=== PATIENT | male | born 1980 | race Caucasian/White ===

== ENCOUNTER 2016-09-18 08:19 | Emergency (ER) | payer OTHER ==
--- NOTE | 2016-09-18 09:01 | RAD ---
THREE VIEW LEFT FOOT: Indication: Injury two days prior with persistent pain. FINDINGS: Lisfranc joint is maintained. There is no fracture or dislocation identified. Soft tissue prominen ce of the distal aspect of the foot is present. IMPRESSION: Soft tissue prominence of the distal foot without underlying fracture identified. POS: [facility]
== END 2016-09-18 09:01 | disposition home or self-care (01) ==
LOC: NAV ERS 08:19
DX: M79.672 Pain in left foot (principal); X58.XXXA Exposure to other specified factors, initial encounter

== ENCOUNTER 2016-10-08 11:47 | Outpatient (CLI) | payer OTHER ==
[~2016-10-08 11:47] MED LIST: Iopamidol 370 76% 100 ML VIAL ONE
--- NOTE | 2016-10-08 15:13 | CT ---
CHEST CT WITH CONTRAST ABDOMEN CT WITH CONTRAST: Date: 10/08/16 HISTORY: Precordial pain. COMPARISON: None. TECHNIQUE: Postcontrast chest and abdomen CT performed in the axial plane. Coronal reformatted images are submi tted for interpretation. FINDINGS: CHEST CT: No mediastinal mass, lymphadenopathy, or hematoma. Heart size is normal. There is no pericardial eff usion. Thoracic aorta and abdominal aorta have an overall normal caliber. No periaortic fat strandin g. Central pulmonary arteries are grossly unremarkable. Trachea and central bronchi are patent. Dependent atelectatic changes and scarring in the lingula an d left lower lobe. No masses. No consolidation. No pleural effusion or pneumothorax. ABDOMEN CT: Intra and extrahepatic portal vein is patent. Symmetric attenuation of psoas muscles. Gallbladder i s unremarkable. Liver, spleen, pancreas, and adrenal glands have appropriate enhancement. Symmetric enhancement of the kidneys. Bilaterally, no obstructive uropathy. There are nonspecific periaortic and aortocaval lymph nodes. There are enlarged mesenteric lymph nod es. Public Health Epidemiologist enlarged mesenteric lymph node measures 1.4 x 0.9 cm. There is no mesenteric free air or free fluid. Gastric mucosa, duodenum, and small bowel loops have an overall normal caliber. Ileocecal junction i s normal. Normal caliber appendix. Visualized colon is unremarkable. There are no osteoblastic or osteolytic lesions. IMPRESSION: 1. No acute abnormality in the chest or abdomen. 2. Enlarged left upper quadrant lymph nodes. Correlate for mesenteric lymphadenitis. POS: [facility]
== END 2016-10-08 11:48 | disposition home or self-care (01) ==
LOC: NAV CT 11:47
PROVIDERS: ATTEND Internal Medicine
DX: R07.2 Precordial pain (principal); R59.0 Localized enlarged lymph nodes
CPT/HCPCS: 71260; 74160

== ENCOUNTER 2017-02-12 14:46 | Outpatient (CLI) | payer OTHER ==
[2017-02-12 15:32] LABS: Anion Gap 14 mmol/L (10-20); BUN (Urea Nitrogen) 15 mg/dL (8.9-20.6); Calc. Creatinine Clearance 0 mL/min (70-130); Calcium 9.3 mg/dL (7.8-10.44); Carbon Dioxide 22 mmol/L (22-29); Chloride 105 mmol/L (98-107); Estimated GFR-MDRD Greater than 90; Glucose 80 mg/dL (70-105); Magnesium 2.5 mg/dL (1.6-2.6); Potassium 3.8 mmol/L (3.5-5.1); Sodium 137 mmol/L (136-145)
== END 2017-02-12 14:47 | disposition home or self-care (01) ==
LOC: NAVSJIPCSP 14:46
PROVIDERS: ATTEND Internal Medicine
DX: G25.81 Restless legs syndrome (principal)
CPT/HCPCS: 36415; 80048; 83735

== ENCOUNTER 2017-03-20 09:34 | Outpatient (CLI) | payer OTHER ==
[2017-03-20 17:49] LABS: Iron 80 ug/dL (65-175); Iron Binding Capacity, Total 313 mcg/dL (261-462); Transferrin, Serum 250 mg/dL (174-364)
== END 2017-03-20 09:35 | disposition home or self-care (01) ==
LOC: NAVSJIPCSP 09:34
PROVIDERS: ATTEND Internal Medicine
DX: E83.110 Hereditary hemochromatosis (principal)
CPT/HCPCS: 36415; 82728; 83540; 83550; 84466

== ENCOUNTER 2017-04-10 12:47 | Emergency (ER) | payer OTHER ==
[2017-04-10] MEDS ORDERED: Mag-Al Plus 1200 MG/1200 MG/120 MG/30 ML UDCUP ONE (12:58)
[2017-04-10] MEDS ORDERED: Lidocaine Viscous Sol 2% 15 ml UD Cup ONE (12:59)
[2017-04-10] MEDS ORDERED: Fentanyl 100 MCG/2 ML VIAL ONE ×2 (13:14→14:25)
[2017-04-10 13:19] LABS: #Basophils 0.1 thou/uL (0.0-0.2); #Eosinphils 0.3 thou/uL (0.0-0.7); #Lymphocytes 2.5 thou/uL (1.20-3.40); #Monocytes 0.5 thou/uL (0.11-0.59); #Neutrophils 5.4 thou/uL (1.40-6.50); %Basophils 1.2 % (0.0-1.0); %Eosinophils 3.8 % (0.0-10.0); %Lymphocytes 28.1 % (21.0-51.0); %Monocytes 5.4 % (0.0-10.0); %Neutrophils 61.5 % (42.0-75.0); Hemoglobin 15.4 g/dL (14.0-18.0); Mean Corpuscular HGB CONC 33.3 g/dL (32.0-36.0); Mean Corpuscular Hemoglobin 27.6 pg (27.0-31.0); Mean Corpuscular Volume 82.9 fl (80.0-94.0); Mean Platelet Volume 7.9 fL (7.4-10.4); Platelet Count 299 thou/uL (130-400); RBC Distribution Width 11.8 % (11.5-14.5); Red Blood Cell (RBC) Count 5.57 mill/uL (4.70-6.10); White Blood Cell (WBC) Count 8.7 thou/uL (4.8-10.8)
[2017-04-10 13:29] LABS: ALT (SGPT) 35 U/L (8-55); AST (SGOT) 18 U/L (5-34); Albumin 4.2 g/dL (3.5-5.0); Alkaline Phosphatase 61 U/L (40-150); Anion Gap 12 mmol/L (10-20); BUN (Urea Nitrogen) 17 mg/dL (8.9-20.6); Bilirubin, Total 0.9 mg/dL (0.2-1.2); CK (CPK) 92 U/L (30-200); Calc. Creatinine Clearance 0 mL/min (70-130); Calcium 9.3 mg/dL (7.8-10.44); Carbon Dioxide 24 mmol/L (22-29); Chloride 104 mmol/L (98-107); Estimated GFR-MDRD Greater than 90; Globulin 3.3 g/dL (2.4-3.5); Glucose 118 mg/dL (70-105); Lipase 53 U/L (8-78); Potassium 3.6 mmol/L (3.5-5.1); Protein, Total 7.5 g/dL (6.0-8.3); Sodium 136 mmol/L (136-145)
[2017-04-10 13:30] LABS: CKMB 1.1 ng/mL (0-6.6); Troponin I Less than 0.010 ng/mL (< 0.028)
--- NOTE | 2017-04-10 13:39 | RAD ---
PORTABLE CHEST ONE VIEW: 04/10/2017 1:05 p.m. HISTORY: Chest pain. COMPARISON: 10/03/2016 FINDINGS: The heart size is normal. The lungs are well expanded without focal areas of consolidation, pneumot horax, or pleural effusions. IMPRESSION: No radiographic evidence of acute cardiopulmonary process. POS: [facility]
[2017-04-10] MEDS ORDERED: Ondansetron HCl/PF 4 MG/2 ML Vial ONE (14:26)
--- NOTE | 2017-04-10 14:52 | ULT ---
GALLBLADDER ULTRASOUND: HISTORY: Right upper quadrant pain, onset two hours ago. TECHNIQUE: Multiple longitudinal and transverse images of the right upper quadrant of the abdomen were obtained using a Multi-Hertz curvilinear transducer. FINDINGS: Real-time and color-flow images demonstrate fibrofatty changes seen in the liver. No definite evide nce of hepatic parenchymal masses or lesions seen. No evidence of intrahepatic biliary dilatation s een. The gallbladder contains a single shadowing focus, measuring approximately 9 mm, compatible wi th a single gallstone. No evidence of gallbladder wall thickening is seen. No evidence of perichol ecystic fluid is seen. The common bile is of normal size, measuring 4.6 mm. The visualized portions of the pancreas are unremarkable. The right kidney is unremarkable. No evidence of right renal masses or lesions seen. IMPRESSION: Cholelithiasis without evidence of obvious cholecystitis. POS: [facility]
[2017-04-10] MEDS ORDERED: Promethazine HCl 25 MG/ML VIAL ONE (15:02)
[2017-04-10] MEDS ORDERED: Ketorolac Tromethamine 30 MG/ML VIAL ONE (15:02)
[2017-04-10] MEDS ORDERED: Sodium Chloride 0.9% 0 ML ONE (15:03)
[2017-04-10] MEDS ORDERED: Sodium Chloride 0.9% 100 ML ONE (15:04)
== END 2017-04-10 15:10 | disposition short-term general hospital (02) ==
LOC: NAV ERS 12:47
DX: K80.80 Other cholelithiasis without obstruction (principal); F98.8 Other specified behavioral and emotional disorders with onset usually occurring in childhood and adolescence
CPT/HCPCS: 36415; 71010; 76705; 80053; 82553; 83690; 84484; 85025; 85379; 93005; 96361; 96374; 96375; 96376; J1885; J2405; J2550; J3010; J7050

== ENCOUNTER 2018-02-04 17:29 | Outpatient (CLI) | payer OTHER ==
--- NOTE | 2018-02-04 18:03 | RAD ---
SINGLE VIEW OF THE ABDOMEN: 02/04/18 COMPARISON: 08/09/08. HISTORY: History of ureteral calculi with left lower abdominal pain. FINDINGS: Single view of the abdomen shows a nonspecific, nonobstructed bowel gas pattern. There is calcificati on in the left pelvis which likely represents a phlebolith as it is unchanged compared to the prior e xam. No obvious calcifications are seen projecting over either renal shadow. IMPRESSION: No urinary collecting system calculi identified. POS: [facility]
== END 2018-02-04 17:30 | disposition home or self-care (01) ==
LOC: NAV RAD 17:29
PROVIDERS: ATTEND Urology
DX: N20.2 Calculus of kidney with calculus of ureter (principal)
CPT/HCPCS: 74018

== ENCOUNTER 2018-02-09 12:44 | Emergency (ER) | payer OTHER ==
[2018-02-09] MEDS ORDERED: Ketorolac Tromethamine 60 MG/2 ML VIAL ONE (13:01)
[2018-02-09] MEDS ORDERED: Ondansetron ODT 4 MG TAB ONE (13:01)
[2018-02-09 13:28] LABS: Bilirubin Negative (Negative); Blood, Urine Negative (Negative); Clarity Clear (Clear); Glucose, Urine (Dipstick) Negative (Negative); Leukocyte Negative (Negative); Nitrite Negative (Negative); Protein, Urine (Dipstick) Negative (Neg-Trace); Urobilinogen 0.2 mg/dL (0.2-1.0)
--- NOTE | 2018-02-09 13:46 | CT ---
NONCONTRAST CT ABDOMEN AND PELVIS: DATE: 02/09/18. HISTORY: Left flank pain. History of renal calculi. COMPARISON: 11/08/13 as well as postcontrast CT abdomen on 10/08/16. FINDINGS: There is atelectasis present at the left lung base. The right lung base is clear. There is mildly d iminished attenuation of the liver relative to the spleen suggesting mild fatty infiltration. Post cholecystectomy changes are noted. The spleen, pancreas, bilateral adrenal glands, and kidneys demonstrate a normal CT appearance. Ther e is no hydronephrosis or hydroureter. However, there is minimal stranding adjacent to the mid left ureter, and there is a proximal 4 mm calculus seen in the region of the left UVJ. No additional renal or ureteral calculi are seen bilaterally. The appendix is visualized and normal in caliber. No free fluid, fluid collection, or lymphadenopathy is seen in the abdomen or pelvis. IMPRESSION: 1. Left ureterovesical junction calculus measuring 4 mm. There is no left hydronephrosis or hydrour eter. 2. Post cholecystectomy changes. 3. No CT evidence of appendicitis. POS: [facility]
== END 2018-02-09 13:45 | disposition home or self-care (01) ==
LOC: NAV ERS 12:44
DX: N20.2 Calculus of kidney with calculus of ureter (principal); F98.8 Other specified behavioral and emotional disorders with onset usually occurring in childhood and adolescence
CPT/HCPCS: 74176; 81003; 96372; J1885; Q0162

== ENCOUNTER 2018-04-14 10:53 | Outpatient (CLI) | payer OTHER ==
[2018-04-14 18:28] LABS: Albumin (w/Testosterone Panel) 4.7 g/dL
[2018-04-14 18:46] LABS: Sex Hormone Binding Globulin 14.4 nmol/L (11-78); Testosterone, Free 54.8 pg/mL (47-244); Testosterone, Total 206.3 ng/dL (240-871)
== END 2018-04-14 10:54 | disposition home or self-care (01) ==
LOC: NAV LAB 10:53
PROVIDERS: ATTEND Internal Medicine
DX: R53.82 Chronic fatigue, unspecified (principal)
CPT/HCPCS: 36415; 84270; 84403

== ENCOUNTER 2018-10-19 11:43 | Outpatient (CLI) | payer OTHER ==
--- NOTE | 2018-10-19 13:10 | RAD ---
LEFT KNEE 4 VIEWS: Date: 10/19/18 HISTORY: Acute left knee pain. FINDINGS/IMPRESSION: No fracture, dislocation, or bony destruction is seen. POS: [facility]
== END 2018-10-19 11:44 | disposition home or self-care (01) ==
LOC: NAV RAD 11:43
PROVIDERS: ATTEND Nurse Practitioner Adult Health
DX: M25.562 Pain in left knee (principal)

== ENCOUNTER 2018-10-27 12:36 | Outpatient (CLI) | payer OTHER ==
--- NOTE | 2018-10-27 14:17 | CT ---
BRAIN CT WITHOUT IV CONTRAST: Date: 10/27/18 HISTORY: Vertigo. FINDINGS: No focal mass or midline shift. No intra or extra-axial hemorrhage. Sinus mucosal changes. Mastoids a re clear. IMPRESSION: No acute intracranial process. No mass or bleed. Sinus mucosal changes. POS: [facility]
== END 2018-10-27 12:37 | disposition home or self-care (01) ==
LOC: NAV CT 12:36
PROVIDERS: ATTEND Nurse Practitioner Adult Health
DX: R42 Dizziness and giddiness (principal)
CPT/HCPCS: 70450

== ENCOUNTER 2020-02-16 08:56 | Emergency (ER) | payer OTHER ==
[2020-02-16] MEDS ORDERED: Iopamidol 370 76% 100 ML VIAL ONE (09:00)
[2020-02-16] MEDS ORDERED: Ondansetron PF 4 MG/2 ML Vial ONE (10:04)
[2020-02-16] MEDS ORDERED: Fentanyl 100 MCG/2 ML VIAL ONE ×2 (10:04→10:36)
[2020-02-16] MEDS ORDERED: Sodium Chloride 0.9% 1,000 ML ONE (10:04)
[2020-02-16 10:09] LABS: ALT (SGPT) 38 U/L (8-55); AST (SGOT) 25 U/L (5-34); Albumin 4.4 g/dL (3.5-5.0); Alkaline Phosphatase 69 U/L (40-110); Anion Gap 14 mmol/L (10-20); BUN (Urea Nitrogen) 17 mg/dL (8.9-20.6); Bilirubin, Direct 0.4 mg/dL (0.1-0.3); Bilirubin, Total 0.8 mg/dL (0.2-1.2); CK (CPK) 95 U/L (30-200); CRP (Inflammatory) 0.56 mg/dL (= or < 0.5); Calc. Creatinine Clearance 0 mL/min (70-130); Calcium 9.5 mg/dL (7.8-10.44); Carbon Dioxide 24 mmol/L (22-29); Chloride 103 mmol/L (98-107); Estimated GFR-MDRD 86; Globulin 3.1 g/dL (2.4-3.5); Glucose 98 mg/dL (70-105); Lipase 50 U/L (8-78); Potassium 3.9 mmol/L (3.5-5.1); Protein, Total 7.5 g/dL (6.0-8.3); Sodium 137 mmol/L (136-145)
[2020-02-16 10:10] LABS: #Basophils 0.1 thou/uL (0.0-0.2); #Eosinphils 0.4 thou/uL (0.0-0.7); #Lymphocytes 2.5 thou/uL (1.20-3.40); #Monocytes 0.5 thou/uL (0.11-0.59); #Neutrophils 5.1 thou/uL (1.40-6.50); %Basophils 1.1 % (0.0-1.0); %Eosinophils 4.5 % (0.0-10.0); %Lymphocytes 28.7 % (21.0-51.0); %Monocytes 6.1 % (0.0-10.0); %Neutrophils 59.6 % (42.0-75.0); Hemoglobin 15.4 g/dL (14.0-18.0); Mean Corpuscular HGB CONC 32.2 g/dL (32.0-36.0); Mean Corpuscular Hemoglobin 26.2 pg (27.0-31.0); Mean Corpuscular Volume 81.3 fL (78.0-98.0); Mean Platelet Volume 9.1 fL (7.4-10.4); Platelet Count 285 thou/uL (130-400); RBC Distribution Width 12.9 % (11.5-14.5); Red Blood Cell (RBC) Count 5.89 mill/uL (4.70-6.10); White Blood Cell (WBC) Count 8.5 thou/uL (4.8-10.8)
--- NOTE | 2020-02-16 10:14 | CT ---
CT Abdomen Pelvis W Con: 02/16/2020 9:12 AM CLINICAL INFORMATION: Liver quadrant abdominal pain COMPARISON: None. TECHNIQUE: Multiple contiguous axial images were obtained and a CT of the abdomen and pelvis with IV contrast. C oronal and sagittal reformats were performed. FINDINGS: Lower Chest: Slight nodular opacity is seen in the posterior aspect of the lingula is in a slight luna e-in-bud configuration Abdomen: Liver: within normal limits. Bile Ducts: Normal caliber. Gallbladder: Removed Pancreas: within normal limits. Spleen: within normal limits. Adrenals: within normal limits. Kidneys: within normal limits. Pelvis: Reproductive Organs: No pelvic masses. Ureters: within normal limits. Bladder: within normal limits. Peritoneum: No ascites or free air, no fluid collection. Bowel: Normal caliber. Normal appendix. Mesentery and Retroperitoneum: No enlarged mesenteric or retroperitoneal lymph nodes. Vessels: Normal. Abdominal Wall: within normal limits. Bones: Within normal limits IMPRESSION: No evidence of acute intraabdominal or pelvic abnormality.
[2020-02-16 10:18] LABS: Bilirubin Negative (Negative); Blood, Urine Negative (Negative); Clarity Clear (Clear); Glucose, Urine (Dipstick) Negative (Negative); Ketone, Urine Negative (Negative); Leukocyte Negative (Negative); Nitrite Negative (Negative); Protein, Urine (Dipstick) Negative (Neg-Trace); Urobilinogen 0.2 mg/dL (Less than 2); pH, Urine 6.5 (5.0-9.0)
== END 2020-02-16 10:49 | disposition home or self-care (01) ==
LOC: NAV ERS 08:56
DX: R10.31 Right lower quadrant pain (principal); R10.10 Upper abdominal pain, unspecified; F98.8 Other specified behavioral and emotional disorders with onset usually occurring in childhood and adolescence; Z79.899 Other long term (current) drug therapy
CPT/HCPCS: 74177; 81003; 82150; 82248; 82550; 83690; 84484; 85025; 86140; 87086; 96374; 96375; J2405; J3010; J7050; Q9967

== ENCOUNTER 2021-03-30 14:57 | Outpatient (CLI) | payer OTHER | END 2021-03-30 14:58 | disposition home or self-care (01) | LOC: NAV CT 14:57 | PROVIDERS: ATTEND Family Medicine | DX: R10.9 Unspecified abdominal pain (principal); N20.0 Calculus of kidney | CPT/HCPCS: 74176 ==